=== PATIENT | female | born 1945 | race African-American/Black ===

== ENCOUNTER 2018-02-23 08:03 | Emergency (ER) | payer MEDICARE, OTHER ==
[~2018-02-23] VITALS: Ht 152.4 cm; Wt 68.0 kg
[~2018-02-23 08:03] MED LIST: AZITHROMYCIN250 MG ORAL; HYDROCHLOROTH12.5 MG ORAL; LOSARTAN POTASS50 MG ORAL
[2018-02-23] MEDS ORDERED: Ketorolac 60mg Inj IM ONE (08:30)
--- NOTE | 2018-02-23 09:25 | Emergency Room Report ---
History of Present Illness General Chief Complaint: Lower Extremity Injury Source: Patient Present Illness HPI This patient states that 5 days ago she was moving a rollaway bed in some other items around her home and was having difficulty moving items. She states she was straining and the day after she did that she developed pain in her left buttock and the lateral side of her left thigh to about the level of her left knee. She states she occasionally feels a numbness sensation in her leg. She does not have weakness in the leg. The leg has not given out. She denies back pain or trauma. She denies loss of bowel or bladder control. She denies recent illness. She denies fever or chills. She denies nausea or vomiting. She has no other complaints. Allergies: Coded Allergies: No Known Allergies (Unverified , 12/09/14) Patient History Past Medical History: see triage record, HTN Social History: Denies: smoking, alcohol use, drug use Last Menstrual Period: NA Reviewed Nursing Documentation: PMH: Agreed; PSxH: Agreed Nursing Documentation-PMH Past Medical History: No History, Except For Hx Hypertension: Yes Review of Systems All Other Systems: negative except mentioned in HPI Physical Exam Vital Signs Date Time Temp Pulse Resp B/P (MAP) Pulse Ox O2 Delivery O2 Flow Rate FiO2 02/23/18 08:07 98.0 89 18 157/97 94 Room Air 98.1 Sp02 EP Interpretation: reviewed, normal General Appearance: no apparent distress, alert, GCS 15, non-toxic Head: normocephalic, atraumatic Eyes: bilateral eye normal inspection, bilateral eye PERRL ENT: hearing grossly normal, normal pharynx, no angioedema, normal voice Neck: full range of motion, supple/symm/no masses Respiratory: chest non-tender, lungs clear, normal breath sounds, no respiratory distress, no retraction, no accessory muscle use, speaking full sentences Cardiovascular #1: regular rate, rhythm, no edema Gastrointestinal: normal bowel sounds, non tender, soft, non-distended, no guarding, no rebound Rectal: deferred Musculoskeletal: back normal, gait/station normal, normal range of motion, non- tender Neurologic: alert, oriented x3, responsive, motor strength/tone normal, sensory intact, speech normal Psychiatric: judgement/insight normal, memory normal, mood/affect normal, no suicidal/homicidal ideation Skin: normal color, no rash, warm/dry, well hydrated Medical Decision Making Diagnostic Impression: Primary Impression: Sciatica ER Course This patient has a clinical presentation consistent with mechanical back pain and sciatica. There are no red flags on physical exam. The patient denies any concerning features such as trauma, fevers, night sweats, history of malignancy , pain worse at night, IV drug abuse, urinary/fecal incontinence or retention, focal weakness or change in sensation, or refractory pain. Given these pertinent negatives in the history and physical exam an emergent cause of the back pain such as epidural abscess, metastasis to bone, cauda equina syndrome, and fracture is less likely. I also doubt emergent cardiovascular cause of back pain such as aortic dissection a ruptured abdominal aortic aneurysm given patient with equal pulses in all 4 extremities with no diastolic murmur or pulsatile abdominal mass. I did obtain a CT of the lumbar spine as a precaution given the patient's age and there was no bony abnormality. The patient was counseled that, though unlikely, the possibility of an emergent cause of back pain may still be present and that the patient should return immediately if symptoms persist or worsen. The symptoms are reproducible with movement. Patient had a benign evaluation and neurologic examination. No emergency etiology was identified. Last Vital Signs Date Time Temp Pulse Resp B/P (MAP) Pulse Ox O2 Delivery O2 Flow Rate FiO2 02/23/18 08:34 98.0 02/23/18 08:07 89 18 157/97 94 Room Air Status: improved Disposition: HOME, SELF-CARE Condition: Improved Referrals: [facility],REFERRING (PCP) Tonya Rivera DO Feb 23, 2018 09:25
--- NOTE | 2018-02-23 09:46 | Diagnostic Imaging Report ---
Indications: Lower back pain after moving furniture Technique: Spiral acquisitions obtained through the lumbar spine. Multiplanar reconstructions were generated. No IV contrast utilized. Total dose length product 886.62 mGycm. CTDIvol(s) 26.44 mGy. Dose reduction achieved using automated exposure control Comparison: none Findings: There is slight anterior offset of L4 on L5. No evidence of pars defect. The remainder the bony alignment is normal. The vertebral body heights are preserved. There is considerable degenerative proliferative change of the lower thoracic spine and to a lesser extent the lumbar spine. No acute fractures. No dislocations. At L2-3, there is bilateral facet arthrosis. There is mild circumferential annular bulge which results in mild narrowing of the spinal canal. There is slight left paracentral disc protrusion which may impinge slightly upon the left lateral recess. At L3-4, there is bilateral facet arthrosis. There is mild circumferential annular bulge which results in borderline narrowing of the spinal canal and mild compromise of the left neural foramen. The disc space is preserved. At L4-5, there is moderate spinal stenosis due to combination of marked ligamentum flavum hypertrophy, circumferential annular bulge, and the alignment abnormality described previously. There is bilateral facet arthrosis. The spinal narrowing is greater in the transverse plane than in the AP dimension. There is mild compromise of the bilateral neural foramina. The disc spaces preserved. At L5-S1, there is mild degenerative disc narrowing. There is posterior disc bulge/osteophyte complex which does not significantly compromise the spinal canal. The included extraspinal soft tissues are unremarkable except for uterine calcifications Impression: No acute bony trauma Degenerative changes, as detailed on a level by level basis above The CT scanner at [facility] is accredited by the [employer] and the scans are performed using protocols designed to limit radiation exposure to as low as reasonably achievable to attain images of sufficient resolution adequate for diagnostic evaluation.
[2018-02-23] MEDS ORDERED: IBUPROFEN800 MG ORAL (09:55)
[2018-02-23] MEDS ORDERED: LIDODERM700 M1 TOPIC (09:55)
[2018-02-23 10:17] VITALS: BP 130/75
== END 2018-02-23 10:19 | disposition home or self-care (01) ==
LOC: EMR 08:36
DX: M54.30 Sciatica, unspecified side (principal); I10 Essential (primary) hypertension
CPT/HCPCS: 72131; 96372; 99284